=== PATIENT | female | born 1935 | race Caucasian/White ===

== ENCOUNTER 2017-02-10 10:29 | Emergency (ER) | payer OTHER, MEDICARE ==
[~2017-02-10] VITALS: Ht 157.5 cm; Wt 79.4 kg
[~2017-02-10 10:29] MED LIST: ASPIRIN81 M4 PO; B COMPLEX1 EACH PO; BENICAR20 M1 PO; BETHANECHOL CHL25 M1 PO; CIPRO500 M1 PO; CO Q-10300 MG PO; CRANBERRY300 MG PO; DAILY MULTIPLE1 EACH PO; FENOFIBRATE145 M1 PO; FLUOXETINE HCL20 M2 PO; LIPOIC ACID25 GM; MEGARED OMEGA-1 EAC1 PO; METFORMIN HCL1000 M1 PO; METOPROLOL TART50 M1 PO; NEXIUM40 M1 PO; OXYCODONE HCL E10 MG PO; RESTASIS1 EACH OPH; TRADJENTA5 M1 PO; VITAMIN B-121000 MC3 PO; VITAMIN D400 UNIT/1 PO
--- NOTE | 2017-02-10 11:51 | ED AMS/SEIZURE/WEAK/DIZZY ---
History of Present Illness General Chief Complaint: General Adult Stated Complaint: ?UTI Source: patient, old records Exam Limitations: no limitations Vital Signs & Intake/Output Vital Signs & Intake/Output Vital Signs Date Time Temp Pulse Resp B/P B/P Pulse O2 O2 Flow FiO2 Mean Ox Delivery Rate 02/10 1451 98.4 70 16 158/76 100 Room Air 02/10 1340 98.7 71 14 164/80 99 Room Air 02/10 1156 Room Air 02/10 1030 97.0 66 20 155/68 98 Room Air Allergies Coded Allergies: tetracycline (UNKNOWN 12/24/15) Reconcile Medications Alpha Lipoic Acid (Lipoic Acid) (Unknown Strength) POWDER (Unknown Dose) BID SUPPLEMENT (Reported) Aspirin (Aspirin*) 81 MG TAB.CHEW 1 TAB PO DAILY HEART HEALTH (Reported) Bethanechol Chloride 25 MG TABLET 1 TAB PO DAILY UNKNOWN (Reported) Cholecalciferol (Vitamin D3) (Vitamin D) 400 UNIT/1 ML DROPS 3 DROP PO DAILY SUPPLEMENT (Reported) Ciprofloxacin HCl (Cipro) 500 MG TABLET 1 TAB PO BID INFECTION Cranberry Extract (Cranberry) 300 MG TABLET 1 TAB PO DAILY SUPPLEMENT ( Reported) Cyanocobalamin (Vitamin B-12) 1,000 MCG TABLET 1 TAB PO DAILY SUPPLEMENT ( Reported) Cyclosporine (Restasis) 1 EACH DROPERETTE 1 GTT OPH BID EYE (Reported) Duloxetine HCl 30 MG CAPSULE.DR 1 CAP PO DAILY DEPRESSION (Reported) Esomeprazole (Nexium) 40 MG CAPSULE.DR 1 CAP PO DAILY GI (Reported) Fenofibrate Nanocrystallized (Fenofibrate) 145 MG TABLET 1 TAB PO DAILY CHOLESTEROL (Reported) Fluoxetine HCl 20 MG CAPSULE 1 CAP PO DAILY MENTAL HEALTH (Reported) Gabapentin (Neurontin) 800 MG TABLET 1 TAB PO TID NEUROPATHY (Reported) Krill/Om-3/Dha/Epa/Phospho/Ast ([place]-3 Krill Oil Sfgl) 1 EACH CAPSULE 1 CAP PO DAILY SUPPLEMENT (Reported) Linagliptin (Tradjenta) 5 MG TABLET 1 TAB PO DAILY DIABETES (Reported) Metformin HCl 1,000 MG TABLET 1 TAB PO BID DIABETES (Reported) Metoprolol Tartrate 50 MG TABLET 1 TAB PO QPM HEART (Reported) Multivitamin (Daily Multiple Vitamin) 1 EACH TABLET 1 TAB PO DAILY SUPPLEMENT (Reported) Nitrofurantoin Monohyd/M-Cryst (Macrobid 100 MG Capsule) 100 MG CAPSULE 1 CAP PO BID UTI with food Olmesartan Medoxomil (Benicar) 20 MG TABLET 1 TAB PO DAILY HEART (Reported) Oxycodone HCl (Oxycodone HCl ER) 10 MG TAB.ER.12H 1 TAB PO Q4-PRN PRN PAIN SCALE 4-6 (MODERATE) Ubidecarenone (Co Q-10) 300 MG CAPSULE 1 CAP PO DAILY SUPPLEMENT (Reported) Vitamin B Complex (B Complex) 1 EACH TABLET 1 TAB PO BID SUPPLEMENT (Reported ) Triage Note: PT [facility]AY FROM [facility]AB [facility]. PT STATES SHE WAS GOING TO A PT APPT DUE TO HAVING ISSUES WITH HER RIGHT KNEE AND WEAKNESS WHEN WALKING. PT STATES TODAY SHE FELT MORE WEAK THEN NORMAL. PT SATES HER GAIT HAS BEEN OFF WELL WHICH IS WHY SHE WAS SEEING PT. PT STATES WHEN SHE GETS WEAK SHE NORMALLY HAS A UTI. PT DENIES PAIN OR BURNING WITH URINATION. PT DENIES ANY PRESSURE WITH URINATING. Triage Nurses Notes Reviewed? yes Onset: Abrupt Duration: day(s): (1), constant, continues in ED Timing: recent history Injury Environment: home Severity: mild, moderate No Modifying Factors: none HPI: 81-year-old female comes into emergency room for further evaluation of increased weakness for the past day. Patient reports that she has a history of urinary tract infections and gets similar symptoms in the past. She reports that she is currently in physical therapy for help with her walking. This is been going on for a while and her doctor set her up with it. She uses a cane and drives. She drove herself here to the emergency room. She denies any chest pain shortness of breath fever chills vomiting back pain. Patient reports that she has urinary continence issues from previous hysterectomy. Denies any other associated symptoms. Nothing seems to make the symptoms better or worse. (EDDIE WALKER) Past History Travel History Traveled to [place] past 21 day No Medical History Any Pertinent Medical History? see below for history Neurological: NONE EENT: NONE Cardiovascular: "MITRAL VALVE ISSUES" Respiratory: NONE Gastrointestinal: NONE Hepatic: NONE Renal: asymptomatic bacteriuria treated with multiple courses of antibiotics [facility] Psychiatric: NONE Endocrine: diabetes Blood Disorders: NONE Cancer(s): NONE FIELD OPERATIONS FARM MANAGER/Reproductive: NONE History of MRSA: No History of VRE: No History of CDIFF: No Pneumonia Vaccine: 07/03/15 Influenza Vaccine: 10/12/14 Surgical History Surgical History: none Psychosocial History Who do you live with Patient/Self What is your primary language Lithuanian Tobacco Use: Never used Family History Hx Contributory? No (EDDIE WALKER) Review of Systems Review of Systems Constitutional: Reports: see HPI. EENTM: Reports: no symptoms. Respiratory: Reports: no symptoms. Cardiovascular: Reports: no symptoms. GI: Reports: no symptoms. Genitourinary: Reports: see HPI. Musculoskeletal: Reports: no symptoms. Skin: Reports: no symptoms. Neurological/Psychological: Reports: no symptoms. Hematologic/Endocrine: Reports: no symptoms. Immunologic/Allergic: Reports: no symptoms. All Other Systems: Reviewed and Negative (EDDIE WALKER) Physical Exam Physical Exam General Appearance: well developed/nourished, no apparent distress, alert, awake Head: atraumatic, normal appearance Eyes: Bilateral: normal appearance. Ears, Nose, Throat: normal pharynx, normal ENT inspection Neck: normal inspection Respiratory: normal breath sounds, no respiratory distress Cardiovascular: regular rate/rhythm Gastrointestinal: normal bowel sounds, soft, non-tender Back: normal inspection Extremities: normal range of motion Neurologic/Psych: awake, alert, oriented x 3, normal gait, normal mood/affect Skin: intact, normal color Core Measures ACS in differential dx? No CVA/TIA Diagnosis: No Severe Sepsis Present: No Septic Shock Present: No (EDDIE WALKER) Progress Differential Diagnosis: arrythmia, alcohol intoxication, benign positional vertigo, labrynthitis, meningitis, multiple sclerosis, postural hypotension, presyncope, post-traumatic vertigo, seizure disorder, subarachnoid Hem., UTI/ pyelo, vertebrobasilar insuff, normal pressure hydrocephalus Plan of Care: Orders Procedure Date/time Status TROPONIN LEVEL 02/10 1151 Complete COMPREHENSIVE METABOLIC PANEL 02/10 1151 Complete CBC WITHOUT DIFFERENTIAL 02/10 1151 Complete EKG 02/10 1151 Active Add-on Test (ER Only) 02/10 1150 Active CULTURE,URINE 02/10 1140 Active Straight Cath 02/10 1126 Active URINALYSIS 02/10 1033 Complete Laboratory Tests 02/10/17 1245: Anion Gap 14, Estimated GFR > 60, BUN/Creatinine Ratio 34.4 H, Glucose 130 H, Calcium 10.2, Total Bilirubin 0.4, AST 19, ALT 39, Alkaline Phosphatase 50, Troponin I < 0.01, Total Protein 7.4, Albumin 4.5, Globulin 2.9, Albumin/ Globulin Ratio 1.6, CBC w Diff NO MAN DIFF REQ, RBC 4.72, MCV 79.8 L, MCH 26.0 L, RDW 15.0 H, MPV 7.6, Gran % 68.6, Lymphocytes % 24.2, Monocytes % 3.6, Eosinophils % 3.0, Basophils % 0.6, Absolute Granulocytes 7.4 H, Absolute Lymphocytes 2.6, Absolute Monocytes 0.4, Absolute Eosinophils 0.3, Absolute Basophils 0.1, PUBS MCHC 32.6 L 02/10/17 1140: Urine Color YEL, Urine Clarity HAZY H, Urine pH 6.5, Ur Specific [place] 1.015, Urine Protein NEG, Urine Ketones NEG, Urine Nitrite POS H, Urine Bilirubin NEG, Urine Urobilinogen 0.2, Ur Leukocyte Esterase SMALL H, Ur Microscopic SEDIMENT EXAMINED, Urine RBC 10-15 H, Urine WBC 15-25 H, Urine Bacteria MANY H, Urine Hemoglobin TRACE-INTACT, Urine Glucose NEG Microbiology 02/10 1140 URINE ROUT: Urine Culture - RECD Diagnostic Imaging: Viewed by Me: CT Scan. Discussed w/RAD: CT Scan. Radiology Impression: EXAM TYPE: CAT - CT HEAD WO IV CONTRAST EXAMINATION: CT HEAD WITHOUT CONTRAST CLINICAL INFORMATION: Normal pressure hydrocephalus COMPARISON: None TECHNIQUE: Contiguous axial imaging was performed from the skull base to vertex without intravenous administration of contrast. DLP: 560.23 mGy-cm FINDINGS: There is no CT evidence of acute intra-axial or extra-axial hemorrhage. No acute mass effect or midline shift. No acute loss of villa-white differentiation. No gross dilatation of the ventricular system. Mild prominence of the ventricles and sulci compatible with age-related involutional changes. Periventricular and subcortical white matter low-attenuation consistent with small vessel ischemic disease. Tiny lacunar infarct suspected in the right basal ganglia. Visualized paranasal sinuses demonstrate mucosal thickening/fluid smaller left sphenoid sinus. Mastoid air cells are well aerated. Osseous structures are intact. IMPRESSION: No acute intracranial pathology. No definite evidence of normal pressure hydrocephalus. Age-related atrophy. Microvascular ischemic disease. Mild sinus disease. Initial ED EKG: normal intervals, normal p-waves, normal sinus rhythm, rate (67) (ILIANA VIDES,EDDIE) Departure Departure Disposition: HOME OR SELF CARE Condition: Stable Clinical Impression Primary Impression: UTI (urinary tract infection) Referrals: YUNI STANLEY,NOLAN Mooney (PCP/Family) Additional Instructions: Take Macrobid as prescribed. Return immediately if any fever chills vomiting back pain your any other concerns worsening symptoms. Please go over all results of today's visit with your primary care doctor. Contact your primary care doctor to let them know you were here in the emergency room. There may be nonspecific findings which may not be related to your visit today here in the emergency room but may require further evaluation and chronic monitoring by your primary care doctor. If you had a laceration today the chance of foreign body always remains. You should follow-up with your primary care doctor for recheck in 3-5 days for a wound check. If you had an x-ray done there is a chance that a fracture could have been missed on initial read and you should follow-up with your primary care doctor for repeat x-rays if symptoms persist. If your blood pressure was elevated here in the emergency room please have rechecked by her primary care doctor within the next 48 hours by your primary care doctor. If you were prescribed a narcotic here in the emergency room or any type of controlled substances you're not allowed to drive while taking this medication or operate any type of heavy machinery. Narcotics can make you feel lightheaded dizziness nausea and can cause constipation. You may need to pickling grader a stool softener. Thank you for choosing [facility] emergency room. Please return to the emergency room immediately if you have any other concerns worsening of symptoms. Departure Forms: Customer Survey General Discharge Information Prescriptions: Current Visit Scripts Nitrofurantoin Monohyd/M-Cryst (Macrobid 100 MG Capsule) 1 CAP PO BID #14 CAP with food Comments 02/10/2017 3:28:24 PM Patient clinically looks well. Patient is nontoxic-appearing. Patient is in no apparent distress. Patient was seen by Dr. Chase. Patient has a urinary tract infection. Patient placed on Macrobid due to previous culture sensitivities. She is afebrile. No white count. Not septic appearing. At this time I feel she would do well as an outpatient. Patient is high functioning. She can return if she has any concerns worsening symptoms. Patient understands and agrees with plan of care. (ILIANA VIDES,EDDIE) PA/MEN'S BASKETBALL COACH Co-Sign Statement Statement: ED Attending supervision documentation- [x] I saw and evaluated the patient. I have also reviewed all the pertinent lab results and diagnostic results. I agree with the findings and the plan of care as documented in the PA's/MEN'S BASKETBALL COACH's documentation. [] I have reviewed the ED Record and agree with the PA's/MEN'S BASKETBALL COACH's documentation. [] Additions or exceptions (if any) to the PAs/MEN'S BASKETBALL COACH's note and plan are summarized below: [] (KARIME STANLEY,DELILAH Lemos)
[2017-02-10 12:56] LABS: ABSOLUTE BASOPHIL COUNT 0.1 /CUMM (0.0-0.2); ABSOLUTE EOSINOPHIL COUNT 0.3 /CUMM (0.0-0.7); ABSOLUTE GRANULOCYTE CT 7.4 /CUMM (1.4-6.5); ABSOLUTE LYMPH COUNT 2.6 /CUMM (1.2-3.4); ABSOLUTE MONOCYTE COUNT 0.4 /CUMM (0.10-0.60); BASOPHIL % 0.6 % (0.0-2.0); GRANULOCYTE % 68.6 % (42.2-75.2); HEMATOCRIT 37.7 % (37-47); MEAN CORPUSCULAR HGB CONC 32.6 G/DL (33.0-37.0); MEAN CORPUSCULAR VOLUME 79.8 FL (81.0-99.0); MEAN PLATELET VOLUME 7.6 FL (7.4-10.4); PLATELET COUNT 350 /CUMM (130-400); RED BLOOD CELL CT 4.72 /CUMM (4.20-5.40); WHITE BLOOD CELL COUNT 10.7 /CUMM (4.8-10.8)
[2017-02-10] MEDS ORDERED: NEURONTIN800 M2 PO (14:11)
[2017-02-10] MEDS ORDERED: DULOXETINE HCL30 MG PO (14:13)
--- NOTE | 2017-02-10 14:21 | CT SCAN REPORT ---
EXAMINATION: CT HEAD WITHOUT CONTRAST CLINICAL INFORMATION: Normal pressure hydrocephalus COMPARISON: None TECHNIQUE: Contiguous axial imaging was performed from the skull base to vertex without intravenous administration of contrast. DLP: 560.23 mGy-cm FINDINGS: There is no CT evidence of acute intra-axial or extra-axial hemorrhage. No acute mass effect or midline shift. No acute loss of villa-white differentiation. No gross dilatation of the ventricular system. Mild prominence of the ventricles and sulci compatible with age-related involutional changes. Periventricular and subcortical white matter low-attenuation consistent with small vessel ischemic disease. Tiny lacunar infarct suspected in the right basal ganglia. Visualized paranasal sinuses demonstrate mucosal thickening/fluid smaller left sphenoid sinus. Mastoid air cells are well aerated. Osseous structures are intact. IMPRESSION: No acute intracranial pathology. No definite evidence of normal pressure hydrocephalus. Age-related atrophy. Microvascular ischemic disease. Mild sinus disease.
[2017-02-10] MEDS ORDERED: MACROBID 100 M100 MG PO (14:33)
[2017-02-10 14:51] VITALS: BP 158/76
== END 2017-02-10 15:13 ==
LOC: ERH 10:29
PROVIDERS: Physician Assistant Medical
DX: N39.0 Urinary tract infection, site not specified (principal); E11.9 Type 2 diabetes mellitus without complications; Z79.84 Long term (current) use of oral hypoglycemic drugs
CPT/HCPCS: 81001; 87086; 93005; 93010